=== PATIENT | male | born 1970 | race Caucasian/White ===

== ENCOUNTER 2020-03-02 02:28 | Outpatient (CLI) | payer SELFPAY ==
[2020-03-03 23:24] LABS: COVID-19 RT-PCR Result NEGATIVE (Negative)
== END 2020-03-02 02:48 ==
PROVIDERS: PCP Nurse Practitioner; Visit Provider Nurse Practitioner
DX: Z20.828 Contact with and (suspected) exposure to other viral communicable diseases (principal); Z11.59 Encounter for screening for other viral diseases
CPT/HCPCS: U0003

== ENCOUNTER 2021-01-08 02:37 | Outpatient (CLI) | payer BC, SELFPAY ==
[2021-01-08 07:56] LABS: HCT 47.6 % (40.0-50.0); HGB 16.4 g/dL (13.5-17.5); MCH 29.5 pg (27.0-33.0); MCHC 34.5 % (32.0-36.0); MCV 85.8 fL (80-95); MPV 10.2 fL (8.0-11.0); Platelet Count 201 10^3/uL (130-400); RBC 5.55 10^6/uL (4.36-5.78); RDW 11.9 % (11.8-14.1); RDW-SD 37.3 fL; WBC 6.43 10^3/uL (4.4-10.8)
[2021-01-08 08:38] LABS: ALT 32 U/L (16-63); AST 17 U/L (15-37); Alkaline Phosphatase 53 U/L (46-116); Anion Gap 10.3 mmol/L (3-11); BUN 19 mg/dL (7-18); Bilirubin, Total 0.7 mg/dL (0.2-1.0); CO2 26.7 mmol/L (21.0-32.0); CREATININE 1.3 mg/dL (0.70-1.30); Calculated LDL 128 mg/dL (<100); Chloride 104 mmol/L (98-107); Cholesterol 216 mg/dL (<200); Estimated GFR 58.92 (mL/min/1.73m2); Glucose 99 mg/dL (74-106); HDL Cholesterol 33 mg/dL (40-60); Potassium 4.2 mmol/L (3.5-5.1); Sodium 141 mmol/L (136-145); Triglyceride 275 mg/dL (<150)
[2021-01-08 18:11] LABS: PSA, Screening 1.2 ng/mL (0.0-2.5)
== END 2021-01-08 02:38 | disposition home or self-care (01) ==
LOC: LBO 02:37
PROVIDERS: PCP Nurse Practitioner; Visit Provider Nurse Practitioner
DX: F13.220 Sedative, hypnotic or anxiolytic dependence with intoxication, uncomplicated; F32.9 Major depressive disorder, single episode, unspecified; N52.9 Male erectile dysfunction, unspecified; R39.11 Hesitancy of micturition; Z80.42 Family history of malignant neoplasm of prostate; Z12.5 Encounter for screening for malignant neoplasm of prostate
CPT/HCPCS: 36415; 80053; 80061; 84153; 85027

== ENCOUNTER 2021-11-06 07:16 | Emergency (ER) | payer BC, SELFPAY ==
[2021-11-06 07:25] VITALS: BP 139/95; PULSE 68; RESP 18; TEMP 37.4; O2SAT 98
--- NOTE | 2021-11-06 07:30 | RT.EKG_ITS ---
APPROVED REPORT Exam: Resting ECG Reason for Exam: left shoulder pain Patient Location: E HR:63 bpm ECG Measurements Heart Rate 63 AXIS IN 134 P 32 QRSd 125 QRS -55 QT 406 T 23 QTc 416 Conclusion Sinus rhythm...normal P axis, V-rate 60- 99 ST elev, probable normal early repol pattern...ST elevation, age<55 Physician: no stemi
--- NOTE | 2021-11-06 07:45 | W.ED.GENAD ---
Discharge Plan Disposition Patient Disposition: HOME Condition: Good Discharge Details Clinical Impression: Cervical radiculopathy Primary Care Provider: Sadia Alonso ED Provider: Shayan Proctor Home Meds and New Rx's Prescriptions: New cyclobenzaprine 10 mg tablet 10 mg PO TID Qty: 14 0RF prednisone 50 mg tablet 50 mg PO DAILY Qty: 5 0RF gabapentin [Neurontin] 300 mg capsule 300 mg PO TID Qty: 90 0RF Rx Instructions: On the first day take 1 pill, on the second day take 1 pill twice daily, on the third day and for the remainder of the prescription take 1 pill 3 times a day. No Action bupropion HCl 300 mg tablet extended release 24 hr 300 mg PO QAM Qty: 90 3RF Rx Instructions: Take in AM. venlafaxine 150 mg capsule,extended release 24hr 150 mg PO QAM Qty: 90 3RF venlafaxine 75 mg capsule,extended release 24hr 75 mg PO QAM Qty: 90 3RF sildenafil [Viagra] 100 mg tablet 50 mg PO DAILY PRN (Reason: sexual activity) Qty: 6 0RF bisacodyl [Dulcolax (bisacodyl)] 5 mg tablet,delayed release (DR/EC) 5 mg PO ONCE Qty: 4 0RF Rx Instructions: Take according to provider's instructions for colonoscopy prep. polyethylene glycol 3350 17 gram/dose powder 17 g PO ONCE Qty: 238 0RF Rx Instructions: To be taken as directed by prescriber's office for colonoscopy prep. omeprazole 20 mg capsule,delayed release(DR/EC) 20 mg PO DAILY Qty: 90 3RF ibuprofen 800 mg Tablet 800 mg PO PRN PRN Discharge Instructions Instructions: Cervical Radiculopathy (ED) Additional Instructions: At this time your symptoms appear consistent with mild cervical radiculopathy. Please take Tylenol and Motrin to help with the inflammation. Take the steroid prednisone and the nerve pill gabapentin as directed. You have been prescribed a muscle relaxant called cyclobenzaprine. Please take this as directed. However do not take it when driving or operating any vehicles or heavy machinery, swimming, taking long baths, or operating firearms. Please use a heating pad as often as possible on your back. If you notice any worsening of your symptoms, or any new symptoms such as vomiting, diarrhea, fever, chills, shortness of breath, chest pain, numbness or tingling in your groin or legs, weakness in your legs, loss of control for your bowels or bladder, or fainting , please return immediately to the emergency department for reevaluation. Please follow up with your primary care provider as soon as possible for reassessment and reevaluation. As always, it was a pleasure participating in your medical care today. Stand Alone Forms: Work Release Referrals: Sadia Alonso NP [Primary Care Provider] - Medical Decision Making 51-year-old male with a past medical history of cervical radiculopathy presents today for left-sided neck and shoulder pain. Symptoms have been present for the last 4 to 5 days. He states that he had symptoms identical to this a few years ago, at which time he had an MRI which did show some mild radiculopathy. 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 He denies any trauma though, or any focal episode that exacerbated his symptoms. He denies any chest or back pain or headache. He states that the pain in his arm is described as an achiness, travels from his left shoulder down to his arm with a sensation of numbness and tingling in the hand forearm and arm. Symptoms are made worse when he turns his neck to the side, and presses down on the top of his head. Patient denies any saddle anesthesia, numbness or tingling in the groin, change in sensation when wiping. Patient denies any change in sensation during sexual intercourse, difficulty achieving or maintaining an erection or ejaculation, bowel or bladder incontinence, leakage, or retention. Patient denies any weakness in the lower extremities, atypical falls or imbalance. Patient did take ibuprofen but this did not improve his symptoms at all. Exam demonstrates a well-appearing male, no midline cervical thoracic or lumbar spine tenderness. Patient demonstrates excellent sensation in the left upper extremity, including good rac specialist strength movement flexion extension at the elbow and shoulder. Good two-point discrimination. No evidence of significant neurovascular compromise whatsoever. Patient does have tense scalenes bilaterally, and symptoms in the left arm are subjectively worsened with downward pressure on the head, as well as sidebending. Differential is highest for mild cervical radiculopathy, potentially mild thoracic outlet syndrome as well. Review of the patient's MRI does demonstrate mild disease in the past. With no evidence of clinical significant neurologic compromise at this time I see no indication for emergent imaging currently. We will treat with steroids, muscle relaxant, recommend he, and continued NSAIDs. Patient does have follow-up on Monday morning. I feel that this is appropriate at this current time in setting. Discussed red flags for which to return. Also discussed with the patient the importance of not driving while on the muscle relaxants as this can inhibit his judgment and skills. I have extensively reviewed the treatment plan and discharge instructions with the patient. I have addressed all patient concerns at this time. The patient was made aware of what symptoms to monitor for that would warrant a return to the emergency department. Discussed the plan with the patient, they demonstrate verbal understanding and agreement with our assessment and plan at this time. The documentation in this chart was dictated using [employer] dictation software. Please excuse any dictation errors. HPI General Date/Time Provider Initiated Documentation: 11/06/21 07:20. HPI Narrative: 51-year-old male with a past medical history of cervical radiculopathy presents today for left-sided neck and shoulder pain. Symptoms have been present for the last 4 to 5 days. He states that he had symptoms identical to this a few years ago, at which time he had an MRI which did show some mild radiculopathy. 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 He denies any trauma though, or any focal episode that exacerbated his symptoms. He denies any chest or back pain or headache. He states that the pain in his arm is described as an achiness, travels from his left shoulder down to his arm with a sensation of numbness and tingling in the hand forearm and arm. Symptoms are made worse when he turns his neck to the side, and presses down on the top of his head. Patient denies any saddle anesthesia, numbness or tingling in the groin, change in sensation when wiping. Patient denies any change in sensation during sexual intercourse, difficulty achieving or maintaining an erection or ejaculation, bowel or bladder incontinence, leakage, or retention. Patient denies any weakness in the lower extremities, atypical falls or imbalance. Patient did take ibuprofen but this did not improve his symptoms at all. Related Data Home Medications Medication Instructions Recorded Confirmed bupropion HCl 300 mg 24 hr tablet, 300 mg PO QAM #90 tab-caps 12/29/20 11/06/21 extended release sildenafil 100 mg tablet (Viagra) 50 mg PO DAILY PRN sexual activity 12/29/20 11/06/21 #6 tabs venlafaxine 150 mg 150 mg PO QAM #90 caps 12/29/20 11/06/21 capsule,extended release 24 hr venlafaxine 75 mg capsule,extended 75 mg PO QAM #90 caps 12/29/20 11/06/21 release 24 hr omeprazole 20 mg capsule,delayed 20 mg PO DAILY #90 caps 03/11/21 11/06/21 release bisacodyl 5 mg tablet,delayed 5 mg PO ONCE #4 tabs 10/29/21 11/06/21 release (Dulcolax (bisacodyl)) polyethylene glycol 3350 17 17 g PO ONCE #238 grams 10/29/21 11/06/21 gram/dose oral powder cyclobenzaprine 10 mg tablet 10 mg PO TID #14 tabs 11/06/21 gabapentin 300 mg capsule 300 mg PO TID #90 caps 11/06/21 (Neurontin) ibuprofen 800 mg tablet 800 mg PO PRN PRN 11/06/21 11/06/21 prednisone 50 mg tablet 50 mg PO DAILY #5 tabs 11/06/21 Previous Rx's Medication Instructions Recorded bupropion HCl 300 mg 24 hr tablet, 300 mg PO QAM #90 tab-caps 12/29/20 extended release sildenafil 100 mg tablet (Viagra) 50 mg PO DAILY PRN sexual activity 12/29/20 #6 tabs venlafaxine 150 mg 150 mg PO QAM #90 caps 12/29/20 capsule,extended release 24 hr venlafaxine 75 mg capsule,extended 75 mg PO QAM #90 caps 12/29/20 release 24 hr omeprazole 20 mg capsule,delayed 20 mg PO DAILY #90 caps 03/11/21 release bisacodyl 5 mg tablet,delayed 5 mg PO ONCE #4 tabs 10/29/21 release (Dulcolax (bisacodyl)) polyethylene glycol 3350 17 17 g PO ONCE #238 grams 10/29/21 gram/dose oral powder cyclobenzaprine 10 mg tablet 10 mg PO TID #14 tabs 11/06/21 gabapentin 300 mg capsule 300 mg PO TID #90 caps 11/06/21 (Neurontin) prednisone 50 mg tablet 50 mg PO DAILY #5 tabs 11/06/21 Allergies Allergy/AdvReac Type Severity Reaction Status Date / Time tramadol AdvReac Severe dopey Verified 11/06/21 07:29 General Stated Complaint: Nk/Back Pain ELIA: 4 Review of Systems All systems reviewed & are unremarkable except as noted in HPI and below PFSH All Active Problems Cervical radiculopathy (Acute) Tobacco abuse (Chronic 06/28/17) Medical History Abnormal blood chemistry Abnormal MRI, cervical spine (07/28/14) h/o R arm paresthesias, herniated disc C5-6, s/p epi inj Anxiety disorder, unspecified (05/16/16) Depressive disorder (06/19/07) bupropion rx 06/12/12; anxiety as well; chg to citalopram 10/06; chg to venlafaxin 11/2012 Dermatophytosis (12/20/11) Family history of prostate cancer Hearing loss (03/23/07) Heartburn Hyperlipidemia Male erectile dysfunction, unspecified (03/02/15) Viagra PRN Sciatica (06/17/13) L leg weak Screening for cholesterol level Tinea versicolor Urinary hesitancy Surgical History Arthroplasty (03/27/03) CONSTANTINE, for dislocation shoulder. Family History Father Prostate cancer Mother Mental disorder anxiety Sister Mental disorder Anxiety Social History Smoking/Tobacco Use Status: Former Tobacco Use Smoking risk assessment performed?: Yes Alcohol Intake: current Alcohol Intake frequency: a few times a week Alcohol type: beer Drug use: Never Substance use type: does not use Exam Narrative Exam Narrative: 1.Const: Well-nourished, Well-developed, appearing stated age 2.Eyes: PERRL, no conjunctival injection, and symmetrical lids. 3.ENT: Atraumatic external nose and ears. Moist MM. Neck: Symmetric, trachea midline, No thyromegaly. 4.CVS: +S1/S2, No murmurs or gallops. Peripheral pulses 2+ and equal in all extremities. Brisk capillary refill in all extremities. 5.RESP: Unlabored respiratory effort. Clear to auscultation bilaterally. No wheezes rales or rhonchi 6.GI: Soft, Nontender/Nondistended, No hepatosplenomegaly. No guarding or rebound. 7.MSK: Normocephalic/Atraumatic, Extremities w/o deformity or ttp No cyanosis or clubbing, Normal movement of all extremities No midline tenderness to palpation over the CTLS spine. Normal ROM in flexion, extension, side bend, and rotation. P +5 out of 5 strength in the medial, ulnar, radial nerve distribution bilaterally in the hands as well as intact light touch sensation to these dermatomes on the hands Downward pressure on the head elicits worsening of the tingling subjectively in the left hand and arm. Sidebending to both the left and the right also exacerbate the symptoms. However there is no midline tenderness. Symmetrically palpable radial and ulnar pulses. Capillary refill less than 2 seconds to all digits. Intact sensation to light touch of the radial, median and ulnar nerves demonstrated by testing in the dorsal web space of the thumb, the distal palmar aspect of the index finger, and the lateral surface of the fifth finger. 2 point discrimination intact to 5mm (up to 6mm can be normal in digits 3-5) of discrimination in the affected digits. Intact motor function of the radial, median and ulnar nerves demonstrated by strength of extension of the isolated distal joint of the index finger, hand rac specialist, and spreading of the 2nd through 5th digits. Intact recurrent median nerve as demonstrated by ability to move thumb fully through opposition, abduction and flexion. No snuffbox tenderness. 8.Skin: Warm, Dry. No rashes or lesions. 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 Sensation grossly intact, no focal neurologic deficits. Please see musculoskeletal 10.Psych: (AAO) x3. Appropriate mood and affect Course Vital Signs Vital signs: Vital Signs Temperature 37.4 C 11/06/21 07:25 Pulse 68 11/06/21 07:25 Respiratory Rate 18 11/06/21 07:25 Blood Pressure 139/95 H 11/06/21 07:25 Pulse Oximetry 98 11/06/21 07:25 Temperature 37.4 C 11/06/21 07:25 Temperature Source Temporal Artery Scan 11/06/21 07:25 Pulse 68 11/06/21 07:25 Respiratory Rate 18 11/06/21 07:25 Blood Pressure 139/95 H 11/06/21 07:25 Blood Pressure Position Sitting 11/06/21 07:25 Pulse Oximetry 98 11/06/21 07:25 Oxygen Delivery Method Room Air 11/06/21 07:25 Oxygen Flow Rate 0 11/06/21 07:25 Pain Level 8 11/06/21 07:25
[2021-11-06] MEDS: predniSONE 20 MG TAB 60 MG PO (08:03)
== END 2021-11-06 11:37 | disposition home or self-care (01) ==
PROVIDERS: Emergency Provider Student in an Organized Health Care Education/Training Program; PCP Nurse Practitioner
DX: M25.512 Pain in left shoulder (principal); M54.12 Radiculopathy, cervical region
CPT/HCPCS: 93005; 99283; 93010; J7512

== ENCOUNTER 2022-02-04 06:13 | Day surgery (SDC) | payer BC, SELFPAY ==
[2022-02-04 06:15] VITALS: BP 134/97; PULSE 71; RESP 16; TEMP 36.6; O2SAT 97
--- NOTE | 2022-02-04 06:22 | COLE_ITS ---
Date of service: 02/04/22 Time of Service: 07:20 Colonoscopy Report Date of procedure: 02/04/22 Pre-op diagnosis general: Colon Cancer Screening Post-op diagnosis procedure note: other (polyps) Procedure: Colonoscopy with polypectomy Surgeon: Ros Nixon Anesthesia Type: General:No Airway Estimated blood loss (mL): 3 Pathology: other (transverse polyp, descending polyp and sigmoid polyps) Complications: None Disposition: same day Indications: He is 51 years old with no gastrointestinal symptoms.? He denies melena, hematochezia, family history of colorectal cancers, or any other discomfort surrounding his GI habits. Risks, benefits and complications have been reviewed. Complications include but are not limited to bleeding, pain, perforation, missed small lesion/polyp, sore throat, aspiration and adverse reac tion to the medications. Questions were entertained and answered to their satisfaction and they wished to proceed. No guarantees were given or implied. He is Prep: Miralax/Dulcolax Procedure Start Time: 07:20 Procedure End Time: 07:42 Retraction Time: 14 minutes Findings: 4 small polyps Procedure Description: After informed consent was obtained the patient was taken to the procedure room and placed in a left decubitous position. Monitors were applied and a time out was done. The patients name, date of , procedure, allergies to medications and metal in their body was reviewed. The patient was then sedated. Once sedated and comfortable a rectal exam was done. External exam was normal. Internal exam revealed a normal sphincter tone and no palpable masses. The prostate felt smooth. The scope was then introduced and retro-flexed. No internal hemorrhoids, polyps or masses were identified on retro-flexion. The scope was then advanced to the cecum without difficulty. The ileocecal vlave and appendiceal orifice were identified. The prep was good. The scope was then slowly retracted over 14 minutes back into the rectum. Polyps were removed with cold forceps in the Transverse colon x1, Descending colon x1 and sigmoid colon x2. There was no diverticulosis noted. The scope was removed and the patient was woken up and taken back to Same day surgery in stable condition. The patient tolerated the procedure well and there were no immediate complications.
--- NOTE | 2022-02-04 06:24 | W.PM.DSUDISC ---
Date of service: 02/04/22 Time of Service: 07:20 Discharge Plan Disposition Patient Disposition: HOME Condition: Good Discharge Details Reason For Visit: colonoscopy Attending Provider: Ros Nixon Primary Care Provider: Sadia Alonso Home Meds and New Rx's Prescriptions: Continued bupropion HCl 300 mg tablet extended release 24 hr 300 mg PO QAM Qty: 90 3RF Rx Instructions: Take in AM. venlafaxine 150 mg capsule,extended release 24hr 150 mg PO QAM Qty: 90 3RF venlafaxine 75 mg capsule,extended release 24hr 75 mg PO QAM Qty: 90 3RF sildenafil [Viagra] 100 mg tablet 50 mg PO DAILY PRN (Reason: sexual activity) Qty: 6 0RF omeprazole 20 mg capsule,delayed release(DR/EC) 20 mg PO DAILY Qty: 90 3RF ibuprofen 800 mg Tablet 800 mg PO PRN PRN Discontinued polyethylene glycol 3350 17 gram/dose powder 238 g PO ONCE Qty: 238 0RF Rx Instructions: take per colonoscopy instructions bisacodyl [Dulcolax (bisacodyl)] 5 mg tablet,delayed release (DR/EC) 5 mg PO ONCE Qty: 4 0RF Rx Instructions: take per colonoscopy instructions Discharge Instructions Instructions: Colorectal Polyps (DC) Additional Instructions: Findings: 4 polyps Follow up: 5 years more then likely Please call if you develop: fevers >101.5 Nausea or Vomiting Abdominal pain that is not transient Rectal bleeding that is more then a tbsp A hard abdomen and inability to pass gas DAY SURGERY UNIT POST ENDOSCOPY INSTRUCTIONS Instructions for everyone who is given Anesthesia: For your safety, please do the following for the next 24 Hours: a. Do not drive or operate dangerous equipment b. Do not drink alcohol beverages or use any recreational drugs for the first 24 hours or while taking pain medications. The medications in your body may have a reaction that can be dangerous. c. Do not make any important decisions or sign any important papers 1. Generally there are no restrictions on your activity after a day or so has gone by, but you may feel a bit fatigued for a few days. 2. After you arrive home you may have a light meal and return to a normal diet as you can tolerate it without feeling sick to your stomach. 3. After surgery, you may feel pain or discomfort. This should be only transient, but if it persists please contact your doctor. 4. If there are any questions regarding the findings of your procedure, please feel free to contact your doctor. 6. If you are unable to contact your doctor with a problem, contact the hospital at [phone]. 7. Continue all your regular medications unless directed otherwise. I understand the above instructions and have no questions. Signature of Patient or Responsible Adult Escort Date/Time Name of Responsible Adult Escort Signature of Nurse Date/Time Activity:: Activity as Tolerated Diet:: As Tolerated Discharge Orders Discharge Orders: Discharge Order (Routine); Ordered 02/04/22 Ordered By: Ros Nixon
[2022-02-04] MEDS: Lactated Ringers 1,000 ML 80 ML IV (06:44)
--- NOTE | 2022-02-04 06:46 | W.ANESPRE ---
General Info Date of Service Date Performed: 02/04/22 Height: 5 ft 10 in Weight: 91.6 kg Body Mass Index (BMI): 29.0 Surgical Procedure: Operation Date: 02/04/22 07:35 Proposed Procedure Side Surgeon p Colonoscopy Ros Nixon MD Meds Allergies and Home Medications Allergies Allergy/AdvReac Type Severity Reaction Status Date / Time tramadol AdvReac Severe dopey Verified 02/04/22 06:01 Home Medication Medication Instructions Recorded bupropion HCl 300 mg 24 hr tablet, 300 mg PO QAM #90 tab-caps 12/29/20 extended release sildenafil 100 mg tablet (Viagra) 50 mg PO DAILY PRN sexual activity 12/29/20 #6 tabs venlafaxine 150 mg 150 mg PO QAM #90 caps 12/29/20 capsule,extended release 24 hr venlafaxine 75 mg capsule,extended 75 mg PO QAM #90 caps 12/29/20 release 24 hr omeprazole 20 mg capsule,delayed 20 mg PO DAILY #90 caps 03/11/21 release ibuprofen 800 mg tablet 800 mg PO PRN PRN 11/06/21 bisacodyl 5 mg tablet,delayed 5 mg PO ONCE colonscopy bowel prep 01/26/22 release (Dulcolax (bisacodyl)) #4 tabs polyethylene glycol 3350 17 238 g PO ONCE colonoscopy prep 01/26/22 gram/dose oral powder #238 grams Current Visit Medications: Current Medications Generic Name Dose Route Start Last Admin Trade Name Freq PRN Reason Stop Dose Admin Hyoscyamine Sulfate 0.125 mg 02/04/22 06:24 Hyoscyamine 0.125 Mg Sl/Oral/Chew SL DIRECTED PRN Ringer's Solution 1,000 mls @ 80 mls/hr 02/04/22 06:00 02/04/22 06:44 IV 03/05/22 23:59 80 mls/hr INFUSION BRONSON Administration IV Miscellaneous Supplies 1 each 02/04/22 06:00 Iv Access IV 03/05/22 23:59 DIRECTED BRONSON Ondansetron HCl 4 mg 02/04/22 06:24 Ondansetron 4 Mg/2 Ml Vial IVP Q4H PRN PRN Nausea / Vomiting Sodium Chloride 0 ml 02/04/22 06:00 Normal Saline Flush 10 Ml Syr IV 03/05/22 23:59 PRN PRN Sodium Chloride 0 ml 02/04/22 06:00 Normal Saline 10 Ml Vial IJ 03/05/22 23:59 DIRECTED PRN Sterile Water 0 ml 02/04/22 06:00 Water,Injection,Sterile 10 Ml Vial IJ 03/05/22 23:59 DIRECTED PRN PFSH Active Problems Active Problems: Problem Status Onset Code Tobacco abuse 06/28/17 Z72.0 Medical History Medical History Abnormal blood chemistry Abnormal MRI, cervical spine (07/28/14) h/o R arm paresthesias, herniated disc C5-6, s/p epi inj Anxiety disorder, unspecified (05/16/16) Depressive disorder (06/19/07) bupropion rx 06/12/12; anxiety as well; chg to citalopram 10/06; chg to venlafaxin 11/2012 Dermatophytosis (12/20/11) Family history of prostate cancer Hearing loss (03/23/07) Heartburn Hyperlipidemia Male erectile dysfunction, unspecified (03/02/15) Viagra PRN Sciatica (06/17/13) L leg weak Screening for cholesterol level Tinea versicolor Urinary hesitancy Surgical History Surgical History (Updated 02/04/22 @ 06:26 by Melida Davis) Arthroplasty (03/27/03) ERROR Repair torn labrum Tobacco Smoking/Tobacco Use Status: Former Tobacco Use Alcohol Alcohol Intake: current Alcohol intake frequency: a few times a week Alcohol type: beer Substance Use Substance use: Never Substance use type: does not use Vital Signs and Lab Results Vital Signs Most Recent Vital Signs in EMR: Most Recent Vital Signs Temp Pulse Resp BP Pulse Ox 36.6 C 71 16 134/97 H 97 02/04/22 06:15 02/04/22 06:15 02/04/22 06:15 02/04/22 06:15 02/04/22 06:15 Lab Results Blood Type / Crossmatch: No Data to Display Complete Blood Count: No Data to Display Complete Metabolic Panel: No Data to Display Liver Function Panel: No Data to Display Coagulation Panel: No Data to Display Cardiac Panel: No Data to Display Arterial Blood Gas: No Data to Display Venous Blood Gas: No Data to Display Pancreas Panel: No Data to Display Thyroid Panel: No Data to Display Infectious Disease: No Data to Display Blood Cultures: No Data to Display Toxicology Panel: No Data to Display Anesthesia Assessment and Plan Anesthesia History Personal History: No History of Anesthesia Complications Family History: No Family History of Anesthesia Complications Exercise Tolerance Exercise Tolerance: Metabolic Equivalents>4 Pertinent Negatives Pertinent Negatives: No Symptoms of GERD Cardiac & Pulmonary Exam Cardiac Exam: Normal S1/S2 Heart Sounds Pulmonary Exam: Clear Bilateral Breath Sounds Implantable Cardiac Device Does patient have a Pacemaker or an ICD?: No Airway Exam Known Difficult Airway: No Mallampati Class: 3 Mouth Opening: Normal (> 3cm) Thyromental Distance: Greater than 3 cm Neck Range of Motion: Full ROM Neck Circumference: Normal Teeth Condition: Normal Dentition ASA Classification ASA Score: ASA 2 Emergency Case?: No NPO Status NPO Status: NPO Clears >2 hours, Solids >8 hours Anesthesia Plan Resuscitation Status: Full Code Anesthesia Technique: General Anesthesia Airway Planned: Natural Airway Monitors Used: Standard Monitors
[2022-02-04 06:58] VITALS: BMI 29.0
--- NOTE | 2022-02-04 07:34 | BOWEL_PTH ---
PATIENT: Ant Yi LOC: [facility] U#:[id number] AGE/SX: 51/M ROOM: RE02/04/[address]: Ros Nixon MD : 1970 BED: DIS: 02/04/2022 SPEC #: [id number] RECD: 02/04/22 12:41 STATUS: SILVERIO RE #: [id number] YONG: 02/04/22 07:[address]: Ros Nixon DEPT: Surgical Specimen RECD BY: Jhoana Goins ENTERED: 02/04/22 12:42 SP TYPE: Bowel OTHR DR: Sadia Alonso APRN Tissues: 1 - BIOPSY BOWEL 2 - BIOPSY BOWEL 3 - BIOPSY BOWEL Procedures: GROSS AND MICRO LEVEL 4 Comments: [id number]
[2022-02-04 07:52] VITALS: BP 97/69; PULSE 72; RESP 15; TEMP 36.4; O2SAT 94
[2022-02-04 07:59] VITALS: BP 101/75; PULSE 65; RESP 16; O2SAT 94
--- NOTE | 2022-02-04 08:22 | W.ANESPOSTOP ---
Postoperative Evaluation Date, Time and Location Date Performed: 02/04/22 Time Performed: 08:00 Patient Location: Day Surgery Unit Vital Signs Most Recent Imported Vital Signs: Most Recent Vital Signs Temp Pulse Resp BP Pulse Ox 36.4 C L 65 16 101/75 94 02/04/22 07:52 02/04/22 07:59 02/04/22 07:59 02/04/22 07:59 02/04/22 07:59 Assessment Mental Status: Arousable with meaningful communication Airway and Respiratory Function: Patent airway with normal (patient baseline) respiratory exam Cardiovascular Function: Hemodynamically Stable Hydration Status: Adequately Hydrated Nausea & Vomiting: No Nausea or Vomiting Pain: Pt. Denies Any Pain Peripheral Nerve Block: Patient did not receive a nerve block
[2022-02-04 08:25] VITALS: BP 123/84; PULSE 57; RESP 16; TEMP 36.7; O2SAT 97
== END 2022-02-04 09:10 | disposition home or self-care (01) ==
PROVIDERS: PCP Nurse Practitioner; Visit Provider Surgery
PROC: 0DJD8ZZ Inspection of Lower Intestinal Tract, Via Natural or Artificial Opening Endoscopic (ICD-10-PCS; CPT 45378; principal; 2022-02-04 07:30)
DX: Z12.11 Encounter for screening for malignant neoplasm of colon (principal); K63.5 Polyp of colon
CPT/HCPCS: 45380; 88305

== ENCOUNTER 2024-04-19 02:17 | Outpatient (CLI) | payer OTHER, SELFPAY ==
[2024-04-19 07:58] LABS: Abs Immature Grans 0.02 10^3/uL (0.0-0.06); Absolute Basophil Count 0.04 10^3/uL (0.0-0.2); Absolute Eosinophil Count 0.13 10^3/uL (0.0-0.7); Absolute Monocyte Count 0.47 10^3/uL (0.1-0.8); Absolute Neutrophil Count 2.63 10^3/uL (1.2-6.7); Basophils % 0.8 %; Eosinophils % 2.5 %; HCT 55.7 % (40.0-50.0); HGB 18.9 g/dL (13.5-17.5); Immature Grans % 0.4 %; Lymphocytes % 36.6 %; MCH 29.1 pg (27.0-33.0); MCHC 33.9 % (32.0-36.0); MCV 86 fL (80-95); MPV 9.8 fL (8.0-11.0); Monocytes % 9.1 %; Neutrophils % 50.6 %; Platelet Count 191 10^3/uL (130-400); RBC 6.49 10^6/uL (4.36-5.78); RDW 12.9 % (11.8-14.1); WBC 5.19 10^3/uL (4.4-10.8)
[2024-04-19 08:25] LABS: ALT 32 U/L (16-63); AST 18 U/L (15-37); Albumin 3.8 g/dL (3.4-5.0); Alkaline Phosphatase 61 U/L (46-116); Anion Gap 5.6 mmol/L (3-11); BUN 13 mg/dL (7-18); Bilirubin, Total 1.07 mg/dL (0.2-1.0); CO2 31.4 mmol/L (21.0-32.0); CREATININE 1.1 mg/dL (0.70-1.30); Calcium 9.4 mg/dL (8.5-10.1); Calculated LDL 127 mg/dL (<100); Chloride 104 mmol/L (98-107); Cholesterol 200 mg/dL (<200); Estimated GFR 81.28 (mL/min/1.73m2); Glucose 94 mg/dL (74-106); HDL Cholesterol 47 mg/dL (40-60); Potassium 4.2 mmol/L (3.5-5.1); Sodium 141 mmol/L (136-145); Total Protein 7.3 g/dL (6.4-8.2); Triglyceride 132 mg/dL (<150)
[2024-04-19 08:36] LABS: Diff Comment RBC Morph Reviewed; RBC Morphology Normal
[2024-04-19 19:01] LABS: PSA, Screening 3.7 ng/mL (<=3.5)
== END 2024-04-19 02:18 | disposition home or self-care (01) ==
LOC: LBO 02:17
PROVIDERS: PCP Nurse Practitioner; Referring Provider Nurse Practitioner; Visit Provider Nurse Practitioner
DX: E78.5 Hyperlipidemia, unspecified (principal); Z80.42 Family history of malignant neoplasm of prostate; Z13.220 Encounter for screening for lipoid disorders
CPT/HCPCS: 36415; 80053; 80061; 84153; 85025

== ENCOUNTER 2024-05-10 00:50 | Outpatient (CLI) | payer OTHER, SELFPAY ==
--- OUTSIDE RECORDS SUMMARY | 2024-05-10 00:52 | XMS_ITS | Encounter Summary ---
Author Organization [facility] Address [facility] [place] [address] Care Team Providers Care General Accounting Manager Name Role Phone Aurelio Hutton MD Primary Care Provider [phone] Encounter Details Date Type Department Care Team (Late st Contact Info) Description 07/28/2014 Telephone [place] [address] Boris Davidson MD [facility] [place] [address] Social History Tobacco Use Types Packs/Day Years Used Date Smoking Tobacco: Never Assessed Sex and Gender Information Value Date Recorded Sex Assigned at Not on file Gender Identity Not on file Sexual Orientation Not on file documented as of this encounter Miscellaneous Notes * Telephone Encounter - Boris Davidson - 07/28/2014 6:03 PM EDT Patient w/ RUE radicular pain, numbness, paresthesias. MRI w/ C5-C6 foraminal stenosis and disc. Will need clinic visit with Dr. Vidal. MRI was done at [facility] and will be pushed. No weakness, myelopathy per report. No bowel or bladder symptoms. Concerning signs and symptoms reviewed Referring provider: Dr. Maritza Mcdonald documented in this encounter Plan of Treatment Not on file documented as of this encounter Visit Diagnoses Not on filedocumented in this encounter Care Teams General Accounting Manager Relationship Specialty Start Date End Date Aurelio Hutton MD [address] [place] [address] PCP - General 02/16/10 08/13/18 documented as of this encounter
--- OUTSIDE RECORDS SUMMARY | 2024-05-10 00:52 | XMS_ITS | Encounter Summary ---
Author Organization [facility] [place] [address] Care Team Providers Care Search Marketing Specialist Name Role Phone Aurelio Hutton MD Primary Care Provider [phone] Reason for Referral * Consultation (Routine) - Closed Specialty Diagnoses / Procedures Referred By Contac t Referred To Contact Pain Management Diagnoses Radiculopathy of cervical region Elizabet Salamanca, MIKEY [facility] [place] [address] [facility] [address] [place] [address] Referral ID Status Reason Start Date Expiration Date V isits Requested Visits Authorized [id number] Closed Assume Subset of Care 07/30/2014 07/30/2015 3 3 Reason for Visit * Reason Comments Neck And Arm Pain Encounter Details Date Type Department Care Team (Latest Contact Info) Description 07/30/2014 9:15 AM EDT [place] [address] Doretha Ricks MD [facility] [place] [address] Radiculopathy of cervical region Discharge Disposition: Home Social History Tobacco Use Types Packs/Day Years Used Date Smoking Tobacco: Former Smokeless Tobacco: Former Comments:quit 2002 / quit niko march 1999 Alcohol Use Standard Drinks/Week Comments Yes 0 (1 standard drink = 0.6 oz pur e alcohol) 2 drinks weekly Sex and Gender Information Value Date Recorded Sex Assigned at Not on file Gender Identity Not on file Sexual Orientation Not on file documented as of this encounter Last Filed Vital Signs Vital Sign Reading Time Taken Comments Blood Pressure 122/67 07/30/2014 9:13 AM EDT Pulse 80 07/30/2014 9:13 AM EDT Temperature - - Respiratory Rate - - Oxygen Saturation - - Inhaled Oxygen Concentration - - Weight 88.5 kg (195 lb 3.2 oz) 07/30/2014 9:13 A M EDT Height 180.3 cm (5' 11) 07/30/2014 9:13 AM EDT Body Mass Index 27.22 07/30/2014 9:13 AM EDT documented in this encounter Progress Notes * Doretha Ricks MD - 07/30/2014 10:28 AM EDT The patient is referred by Dr. Hutton for evaluation of surgical radiculopathy. The patient was seen in conjunction with Elizabet Ceron. Please see her separately dictated note for additional details. Briefly, Mr. Yi is a 44-year-old healthy man who has two months of neck and right arm pain with pain and paresthesia in a right C6 distribution. For the last two weeks he feels that his pain is a bit worse and he is having some subjective weakness. 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 Thus far he has been treated with nonsteroidal anti-inflammatory medication, steroid taper and Flexeril. He has not tried membrane-stabilizing medication or epidural steroid injection. He is due to start physical therapy on . At present the patient denies any problems with dexterity or gait. I reviewed his MRI personally. It demonstrates a paracentral right C5-6 disk herniation with associated foraminal stenosis and compression of the exiting C6 root. The disk herniation is continuous with the cord but does not significantly deform it. There is no increased cord signal. Past Medical History: Left shoulder surgery. Medications and allergies are up to date. The patient does not take aspirin. Social History: The patient does not smoke. He is accompanied today by his girlfriend. Physical examination reveals a healthy, fit-appearing man in no outward distress. Affect is slightly flat. He has a normal gait. He has 5/5 power in the deltoid, biceps, triceps, office worker and hand intrinsics. There may be trace weakness in wrist extension on the right. Lower extremity strength is normal. There is trace reflex spread of the upper extremity reflexes but no evidence of Senia sign. Patellar reflexes are 2+. Pinprick, light touch discrimination is persevered throughout the upper and lower extremities although there is subjective decrease in pinprick sensation in the right C6 distribution. Impression: Mr. Yi is a 44-year-old man with a painful right C6 radiculopathy as a result of a C5-6 disk herniation. I discussed with him the option of continued medical management. I recommended him trying a membrane-stabilizing medication and an epidural steroid injection. I think it is reasonable for him to start his physical therapy. I explained that painful radiculopathies often resolve on their own if we can simply palliate the pain in the interim. I did recommend that he take a break from any work-related activities that require heavy lifting. We will plan on seeing him back after he has tried these conservative measures. If the pain is still significant and persistent we could discuss in more detail the nature of C5-6 anterior cervical diskectomy and fusion. Twenty-five minutes of this 35-minute visit were spent in direct [id number] counseling. * Elizabet Ceron APRN - 07/30/2014 9:44 AM EDT HPI: Patient is seen in the Neurosurgery Clinic in consultation for R arm pain, numbness and weakness. Patient is referred by his PCP, Dr. Hutton. Two months ago, patient woke with a stiff neck on the right side. No inciting incident. This progressed to R shoulder pain, which he initially thought was related to his rotator cuff. Pain progressedto lateral arm and hand, and he now feels tingling in his hand and lateral arm. R shoulder pain hasimproved. In the last 2 weeks, he has noticed more weakness in his R hand (he is R dominant) and feels that his R arm fatigues quickly with any kind of repetitive elevation. He denies gait or balancedifficulty or LE symptoms. He did have some difficulty with starting urination, but this is the first time this has occurred. Treatments tried: Upon symptom onset, medrol dose yves--no effect. Flexeril--no improvement. Ketorolac--no improvement. Started prednisone 70mg tapering by 10mg/day yesterday. Feels improved today, but also did not work yesterday and rested much of the day. Given the persistence of his symptoms, an MRI of the cervical spine was obtained and showed possible R disc extrusion at C5-6, for which he isreferred. Patient has a history of lumbar back pain, for which he has never had surgery. He has had radicularpain that radiates into both thighs. 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 Patient does not currently smoke cigarettes. ETOH twice weekly. Lives with girlfriend. Past Medical History Diagnosis Date ??? Back pain Past Surgical History Procedure Laterality Date ??? Rotator cuff repair Left ROS: Patient states s/he has been feeling well. S/he denies headache, nausea/vomiting, mental status change, diplopia or vision loss. S/he is without headaches, excess fatigue, vision or hearing changes, incoordination, weakness or sensory loss, gait/balance difficulties or mental status changes. PE: Filed Vitals: 07/30/14 0913 BP: 122/67 Pulse: 80 Constitutional: Appears well in NAD. Well-nourished, grooming and dress appropriate to situation. Neuro: A&Ox4. Motor: Segment Muscle Action Right Left C5 Biceps Elbow flexion 5 5 C6 Extensor carpi radialis Wrist extension 4+ 5 C7 Triceps Elbow extension 5 5 C8, T1 Hand intrinsics Grasp 4+ 5 L2 Iliopsoas Hip flexion 5 5 L3 Quadriceps Knee extension 5 5 L4 Tibialis anterior Dorsiflexion 5 5 L5 Extensor hallucis Great toe extension S1 Gastrocnemius Plantar flexion 5 5 Sensory: Intact to light touch/pinprick throughout LUE, subjectively reduced to pinprick R lateral upper arm/forearm, hand. Gait: Smooth, balanced, negative Romberg, tandem walk stable, able to toe and heel walk. Reflexes: Biceps Triceps BR Patellar Ankle Jerk Toes R 2+ 2+ 2+ L 2+ 2+ 2+ MRI from 07/28/14 is reviewed by me personally. There is mild protrusion of the right C5-6 disc, which partially impinges on the R C5-6 nerve root. The spinal cord shows no increased signal. No other areas of impingement are seen. A: I reviewed the diagnosis of nerve root impingement in detail, including review of current imaging. We discussed the natural course and related symptoms. We discussed treatment options, including medical management and surgery. I discussed the risks and benefits of each option, and patient stated understanding. His symptoms are consistent with peripheral nerve impingement without symptoms of myelopathy. We discussed this distinction and the implications for treatment. Given that his neurological exam is largely nonfocal and there are no signs of myelopathy, our recommendation is to proceed with continued medical management, to include epidural steroid injection to the nerve root, physicaltherapy, and symptom management with a neuropathic medicaiton such as gabapentin. Should symptoms not respond or myelopathic features develop, surgery can be considered, which wouldinclude a cervical fusion. Given his young age and the nature of this surgery, we have recommended continued medical management. We will have him proceed with this and will re-evaluate him in 3-4 weeks following participation in these measures, to evaluate his symptoms and their response. He knows to call in the interim with any progressive weakness, gait/balance difficulty, or bowel orbladder dysfunction. Dr. Ricks was present and evaluated the patient. See Dr. Ricks' note for additional assessment and plan. documented in this encounter Miscellaneous Notes * Addendum Note - Doretha Ricks MD - 07/30/2014 4:47 PM EDTAddended by: Doretha RICKS on: 07/30/2014 04:47 PM Modules accepted: Level of Service documented in this encounter Plan of Treatment Scheduled Referrals Name Type Priority Associated Diagnoses Orde r Schedule Referral to Pain Clinic Outpatient Referral Routine Radiculopathy of cervical region Ordered: 07/30/2014 documented as of this encounter Visit Diagnoses Diagnosis Radiculopathy of cervical region Brachial neuritis or radiculitis nos documented in this encounter Care Teams Search Marketing Specialist Relationship Specialty Start Date End Date Aurelio Hutton MD [address] [place] [address] PCP - General 02/16/10 08/13/18 documented as of this encounter
--- OUTSIDE RECORDS SUMMARY | 2024-05-10 00:52 | XMS_ITS | Encounter Summary ---
Author Organization [facility] Address [address] [place] [address] Care Team Providers Care Cafe Lead Name Role Phone Aurelio Hutton MD Primary Care Provider [phone] Encounter Details Date Type Department Care Team (Late st Contact Info) Description 10/05/2016 Abstract [facility] Conversion Results [address] [place] [id number] Apd Conversion, Flowsheet Provider, Social History Tobacco Use Types Packs/Day Years Used Date Smoking Tobacco: Former Smokeless Tobacco: Former Comments:quit 2002 / quit joaquim 1999 Alcohol Use Standard Drinks/Week Comments Yes 0 (1 standard drink = 0.6 oz pur e alcohol) 2 drinks weekly Sex and Gender Information Value Date Recorded Sex Assigned at Not on file Gender Identity Not on file Sexual Orientation Not on file documented as of this encounter Plan of Treatment Not on file documented as of this encounter Visit Diagnoses Not on filedocumented in this encounter Care Teams Cafe Lead Relationship Specialty Start Date End Date Aurelio Hutton MD [address] [place] [address] PCP - General 02/16/10 08/13/18 documented as of this encounter
--- OUTSIDE RECORDS SUMMARY | 2024-05-10 00:52 | XMS_ITS | Encounter Summary ---
[place] [address] Care Team Providers Care Back End Developer Name Role Phone Aurelio Hutton MD Primary Care Provider [phone] Encounter Details Date Type Department Care Team (Late st Contact Info) Description 09/03/2014 Telephone [place] [phone] Donna Miller LNA Social History Tobacco Use Types Packs/Day Years [...] encounter Miscellaneous Notes * Telephone Encounter - Donna Miller LNA - 09/03/2014 11:29 AM EDT Ant Yi :1970 Message left: I left a message on answering machine Mr. Yi at 11:29 AM regarding his upcoming cervical epidural steroid injection with Dr. Randy Olivarez DO. Message included the followin. Patient instructed to arrive at 9:50AM on 09/04/2014 with their motor vehicle escort driver. 2. Following instructions left in the message: - Call the Pain Clinic Nurse at for: ~If you are taking antibiotics. ~If you have any signs or symptoms of infection, cold or flu. ~If you have any skin breakdown (rashes, cysts, or abscess.) ~If you are taking anticoagulants / blood thinners (Plavix, Pletal, Lovenox, Coumadin, etc). ~If you had any steroid injections anywhere in your body within the last two weeks? 3. If patient NPO: No food after 4:15AM; clear fluids only up until 8:15AM. Criminal Investigator: The patient was reminded that they need to have a motor vehicle escort driver accompany them to his procedure who will remain onsite. All Other Procedure Patients: The patient was instructed that if they take daily pain or anti-anxiety medications, they can and should continue taking on the day of the procedure. Donna ALEXIS documented in this encounter Plan of Treatment Not on file documented as of this encounter Visit Diagnoses Not on filedocumented in this encounter Care Teams Back End Developer Relationship Specialty Start Date End Date Aurelio Hutton MD [address] [facility] [place] [address] PCP - General 02/16/10 08/13/18 documented as of this encounter
--- OUTSIDE RECORDS SUMMARY | 2024-05-10 00:52 | XMS_ITS | Encounter Summary ---
Author Organization [facility] Address [address] [place] [address] Care Team Providers Care Finishing Tunnel Operator Name Role Phone Celeste Sadia Zamora FIRE CAPTAIN MARINE Primary Care Provider [phone] Encounter Details Date Type Department Care Team (Late st Contact Info) Description 04/19/[address] [facility] Pathology & Laboratory Medicine - [address] [id number] Outr Resulting Lab, Provider Social History Tobacco Use Types Packs/Day Years Used Date Smoking Tobacco: Never Assessed Sex and Gender Information Value Date Recorded Sex Assigned at Not on file Legal Sex Male 18:44 EST Gender Identity Not on file Sexual Orientation Not on file documented as of this encounter Plan of Treatment Not on file documented as of this encounter Procedures Procedure Name Priority Date/Time Associated Diagnosis Comments PSA TOTAL, DIAGNOSTIC Routine 04/19/2024 7:42 EST documented in this encounter Results * (ABNORMAL) PSA, DIAGNOSTIC (04/19/2024 7:42 EST) PSA 3.7(H) <=3.5 ng/mL 04/19/2024 18:57 EST [facility] Blood VENOUS BLOOD / Unknown 04/19/2024 7:42 EST 04/19/2024 16:34 EST Narrative [facility] - 04/19/2024 18:57 EST NOTE: Serum PSA concentration should not be interpreted as absolute evidence for the presence or absence of malignant disease. Assayed on Siemens ADVIA Centaur XPT using chemiluminescent technology.??Values obtained by using different assay methods cannot be used interchangeably. us Provider Outr Resulting Lab CHEMISTRY & BLOOD GA S ORDERABLES Final Result [facility] [address] [place], [place] [address] documented in this encounter Visit Diagnoses Not on filedocumented in this encounter Care Teams Finishing Tunnel Operator Relationship Specialty Start Date End Date Sadia Alonso NP [address] [place] [address] PCP - General Family Medicine - Primary Care 01/25/22 documented as of this encounter
--- OUTSIDE RECORDS SUMMARY | 2024-05-10 00:52 | XMS_ITS | Encounter Summary ---
Author Organization [facility] Address [address] [place] [address] Care Team Providers Care Industrial Energy Engineer Name Role Phone Sadia Alonso RIPSAWYER Primary Care Provider [phone] Encounter Details Date Type Department Care Team (Late st Contact Info) Description 02/04/2022 Lab Requisition [facility] Pathology & Laboratory Medicine - [facility] [address] [place] [address] Del Nixon MD [address] [place] [id number] Encounter for screening for malignant neoplasm of colon Social History Tobacco Use Types Packs/Day Years [...] Procedure Name Priority Date/Time Associated Diagnosis Comments SURGICAL PATHOLOGY Today 02/04/2022 7:34 EST Encounter for screening for malignant neoplasm of colon documented in this encounter Results * SURGICAL PATHOLOGY (02/04/2022 7:34 EST) Note to Patient The following pathology results have been interpreted by your pathologist and may be available to you before your health provider has had the opportunity to review them. Please allow time for your provider to receive these results and explore management options, if applicable. 02/08/2022 14:50 EST [facility] Final Diagnosis A. COLON, TRANSVERSE, POLYP, BIOPSY: - Sessile serrated adenoma. B. COLON, DESCENDING, POLYP, BIOPSY: - Colonic mucosa with hyperplastic surface change. C. COLON, SIGMOID, POLYPS, BIOPSY: - Hyperplastic polyps. 02/08/2022 14:50 [facility] Attestation By the signature below, the attending physician certifies that they have 1) personally conducted a gross and/or microscopic examination of the described specimen(s), and/or personally interpreted the results of laboratory testing of the described specimen(s), and 2) personally rendered or confirmed the above diagnosis. 02/08/2022 14:50 [facility] at 1450 Clinical History Colon cancer screening; clinical diagnosis code: Z12.11 02/08/2022 14:50 [facility] Gross Description A. Received in formalin labelled with proper patient identification (initials G, J) and transverse colon polyp are 3 duarte tissues (0.4 x 0.1 x 0.1 cm to 0.1 x 0.1 x 0.1 cm). Entirely submitted in A1. B. Received in formalin labelled with proper patient identification (initials G, J) and descending colon polyp is a single duarte tissue fragment (0.2 x 0.1 x 0.1 cm). Submitted intact in B1. C. Received in formalin labelled with proper patient identification (initials G, J) and sigmoid polyp x2 are two duarte tissues (0.3 x 0.1 x 0.1 cm and 0.2 x 0.1 x 0.1 cm). Entirely submitted in C1. SULEMAN RIVERA 02/07/2022 4:53 02/08/2022 14:50 [facility] Performing Lab [facility] 02/08/2022 14:50 [facility] Scanned Images 02/08/2022 14:50 [facility] Tissue ENTIRE SIGMOID COLON / Unknown 02/04/2022 7:34 EST 02/04/2022 17:57 EST Tissue specimen (specimen) DESCENDING COLON STRUCTURE / Unknown 02/04/2022 7:34 EST 02/04/2022 17:57 EST Tissue specimen (specimen) SIGMOID COLON STRUCTURE / Unknown 02/04/2022 7:34 EST 02/04/2022 17:57 EST us Del Nixon MD PATHOLOGY ORDERABLES Fin al Result [facility] [address] [place] [address] documented in this encounter Visit Diagnoses Diagnosis Encounter for screening for malignant neoplasm of colon Special screening for malignant neoplasms, colon documented in this encounter Care Teams Industrial Energy Engineer Relationship Specialty Start Date End Date Sadia Alonso NP [address] [place] [id number] PCP - General Family Medicine - Primary Care 01/25/22 documented as of this encounter
--- OUTSIDE RECORDS SUMMARY | 2024-05-10 00:52 | XMS_ITS | Encounter Summary ---
Author Organization [facility] [place] [address] Care Team Providers Care Accounting/Finance Tutor Name Role Phone Sadia Alonso APRN Primary Care Provider [phone] Encounter Details Date Type Department Care Team (Latest Contact Info) Description 08/01/2022 Travel Social History Tobacco Use Types Packs/Day Years [...] on filedocumented in this encounter Care Teams Accounting/Finance Tutor Relationship Specialty Start Date End Date Sadia Alonso APRN [address] [place] [address] PCP - General Internal Medicine 12/12/18 documented as of this encounter
--- OUTSIDE RECORDS SUMMARY | 2024-05-10 00:52 | XMS_ITS | Clinical Summary ---
Author Organization [facility] Address [facility] [place] [address] Care Team Providers Care Communications Tech Name Role Phone Sadia Alonso APRN Primary Care Provider + [phone] Allergies No known active allergies Medications Medication Sig Dispensed Refills Start Date End Date Status venlafaxine (EFFEXOR-XR) 150 mg Capsule, Sust. Release 24 hr Take 150 mg by mouth daily. Active Active Problems No known active problems Encounters Date Type Department Care Team Description 04/09/2024 Travel from Last 3 Months Social History Tobacco Use Types Packs/Day Years Used Date Smoking Tobacco: Former Smokeless Tobacco: Former Comments:quit 2002 / quit joaquim 1999 Alcohol Use Standard Drinks/Week Comments Yes 0 (1 standard drink = 0.6 oz pur e alcohol) 2 drinks weekly Sex and Gender Information Value Date Recorded Sex Assigned at Not on file Gender Identity Not on file Sexual Orientation Not on file Last Filed Vital Signs Vital Sign Reading Time Taken Comments Blood Pressure 123/84 09/04/2014 10:28 AM EDT Pulse 57 09/04/2014 10:28 AM EDT Temperature - - Respiratory Rate 18 09/04/2014 10:28 AM EDT Oxygen Saturation 98% 09/04/2014 10:28 AM EDT Inhaled Oxygen Concentration - - Weight 86.2 kg (190 lb) 09/04/2014 10:10 AM EDT Height 180.3 cm (5' 11) 09/04/2014 10:10 AM EDT Body Mass Index 26.5 09/04/2014 10:10 AM EDT Plan of Treatment Health Maintenance Due Date Last Done Comments CT Colonography 1972 Colonoscopy 1972 Colorectal Cancer Screening 1972 FIT DNA 1972 FIT 1972 Sigmoidoscopy (10 year) with FIT yearly 1972 Sigmoidoscopy 1972 HIV screen 1990 Hepatitis C Screening 1990 Lipid Screening 1990 Hepatitis B vaccine (0-59 yrs) (1) 06/09/1991 Tetanus/Diphtheria/Pertussis Vaccines (1 - Tdap) 06/08 Pneumoccocal Vaccine: 50+ (1 of 1 - PCV) 2022 Zoster vaccine (1 of 2) 2022 Covid-19 Vaccine (1 - 2023- season) 2023 Influenza (Flu) vaccine (1 o f 1 - Influenza standard series) 11/26/2023 Care Teams Communications Tech Relationship Specialty Start Date End Date Sadia Alonso APRN [address] [place] [address] PCP - General Internal Medicine 12/12/18
--- OUTSIDE RECORDS SUMMARY | 2024-05-10 00:52 | XMS_ITS | Encounter Summary ---
Author Organization [facility] [place] [address] Care Team Providers Care Psychiatric Orderly Name Role Phone Aurelio Hutton MD Primary Care Provider [phone] Reason for Visit * Reason Comments Neck Pain Encounter Details Date Type Department Care Team (Latest Contact Info) Description 09/04/2014 9:50 AM EDT Procedure visit [place] [id number] Bianca Banks [facility] [place] [address] Cervical spondylosis without myelopathy; Radiculopathy of cervical region Discharge Disposition: Home [...] Mass Index 26.5 09/04/2014 10:10 AM EDT documented in this encounter Patient Instructions * Patient Instructions* Gini Valente LPN - 09/04/2014 10:19 AM EDT Pain Management Center Discharge Instructions: You were seen by Dr. Bianca Banks DO who performed cervical epidural steroid injection. It is normal that the injection site will be sore for up to 48 hours. You may also experience mild stiffness in the joint near the injection site. [x] You may resume your normal activities: Monday. You may shower today. DO NOT tub bathe, use whirlpools, hot tubs or pool therapy for 2 days. RemoveBand-Aid(s) later today/tomorrow. Do not drive until tomorrow. Use caution walking/climbing stairs as you may be unsteady on your feet. You may use your usual medications, including pain medications, as directed, unless otherwise instructed. You may use an ice pack as needed for the first 24 hours, on for 20 minutes then off for 20 minutes. Do not apply heat today. Attempt to empty your bladder 4-6 hours after your procedure. [x] If you have diabetes, monitor your blood sugars frequently. If your blood sugar increases and is of concern, contact your Primary Care Provider. You received the following medications: Lidocaine, Omnipaque (contrast dye) and Dexamethasone Sodium Phosphate 10 mg. During regular business hours, please phone the Pain Management Center at for appointments or with any questions or if the following or other troubling symptoms develop: 1) Prolonged dizziness or weakness (more than 1 day). 2) Localized swelling, redness or drainage at the injection site(s). 3) Temperature of 101 degrees that lasts for more than 4 hours. After 5 PM or on weekends, call and ask for Pain Clinic provider on-call. If you are unable to reach the Pain Management Center and have a complication, please call your Primary Care Provider or proceed to your local emergency department. MAYDA Rubalacva documented in this encounter Progress Notes * Yeimi Perry RN - 09/04/2014 10:12 AM EDT Pre-Procedure Screening Questions: 1. Status: No 2. 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 Patient taking antibiotics at present? No 4. NPO per Pain Management Center protocol? Yes 5. Patient diabetic: No 6. Patient routinely taking anticoagulants ? No Anticoagulant: Date Stopped: Current INR: Patient Vital Signs documented in Doc Flowsheets associated with this encounter. Patient Discharge Instructions were reviewed with patient and copy provided to patient. documented in this encounter Procedure Notes * Leanna Bowen - 09/04/2014 10:35 AM EDTAssociated Order(s): EPIDURAL STEROID INJECTION Procedure(s): EPIDURAL STEROID INJECTION Pre-Procedure Diagnose(s): Cervical spondylosis without myelopathy Procedure Note Cervical Interlaminar Epidural Steroid Injection Date of Service: 09/04/2014 Patient: Ant Yi Provider: Leanna Bowen MD Ant Yi has been referred to the Pain Management Center for cervical epidural steroid injection. Mr. Yi was interviewed and the medical record were reviewed. There were no medical, pharmacologic, radiographic or other structural contraindications to attempting fluoroscopically guided cervicalinterlaminar epidural steroid injection. Risks, potential side effects, indications, and potential benefits of the procedure were reviewed with Mr. Yi. Questions and concernswere addressed. After it was clear that the patient was fully informed about the procedure, the printed consent form was signed by the patient and myself. A standard time-out procedure was performed. The patient was placed in the prone position on the fluoroscopy table and automated blood pressure cuff as well as pulse oximeter was applied. The skin entry point for entering the epidural space by a midline C7-T1 interlaminar approach was identified under fluoroscopy and marked. The skin entry point was thoroughly cleaned with Chlorhexadine preparation and the skin was draped. Next a mixture of9cc of 1% lidocaine mixed with 1cc of Sodium Bicarbonate was infiltrated into the area of the planned skin entry point and underlying subcutaneous tissues. Next an 18 gauge Tuohy needle was placed under fluoroscopic guidance and with loss of resistance technique into the epidural space utilizing multiple AP and 55 degree contralateral fluoroscopic views. Upon correct needle placement and loss of resistance, there were no paresthesiae or return of blood or CSF through the needle. Next 2cc of preservative-free Omnipaque 240 was injected with clear epidural spread in the A/P and oblique views. Next, a solution of 10mg of preservative-free Dexamethasone mixed with 1ml of preservative-free normal saline was injected through with no unusual discomfort expressed by Mr. Yi. Mr. Yi's vital signs were stable throughout the procedure and were as recorded in the docflowsheet by the nursing staff. If given, dosages of intravenous drugs for anxiolysis and analgesia were documented in MAR. Follow up plans and appointments were discussed with the Mr. Yi. Post procedure instruction was given as documented in nursing documentation and having met discharge criteria, he was discharged from the Pain Management Center. COMMENTS: Pt felt lightheaded and clammy after procedure. His blood pressure and pulse went down. We monitored his vital signs afterwards in the procedure room for 10 minutes. He stabilized and the symptoms resolved. He was discharged without new complaints. BIANCA BANKS DO, MPH ABPMR-subspecialty board certification in Pain Medicine Attending Physician-Pain Management CC: Aurelio Hutton MD [address] [place] [id number] AURELIO HUTTON MD [address] [place] [id number] documented in this encounter Plan of Treatment Not on file documented as of this encounter Procedures Procedure Name Priority Date/Time Associated Diagnosis Comments EPIDURAL STEROID INJECTION Routine 09/04/2014 4:03 PM EDT Cervical spondylosis without myelopathy FILM LIBRARY STORAGE ONLY PAIN CLINIC C ARM Routine 09/04/2014 10:50 AM EDT documented in this encounter Results * EPIDURAL STEROID INJECTION (09/04/2014 4:03 PM EDT) Narrative Bianca Banks DO - 09/04/2014 4:03 PM EDT Bianca Banks DO ? 09/04/2014 ??4:03 PM Procedure Note Cervical Interlaminar Epidural Steroid Injection Date of Service: ??09/04/2014 Patient: ??Ant Yi ?? Provider: ??Leanna Bowen MD ?? Ant Yi has been referred to the Pain Management Center for cervical epidural steroid injection. ?? Mr. Yi was interviewed and the medical record were reviewed. ?? There were no medical, pharmacologic, radiographic or other structural contraindications to attempting fluoroscopically guided cervical interlaminar epidural steroid injection. ??Risks, potential side effects, indications, and potential benefits of the procedure were reviewed with Mr. Yi. ??Questions and concernswere addressed. ??After it was clear that the patient was fully informed about the procedure, the printed consent form was signed by the patient and myself. ??A standard time-out procedure was performed. The patient was placed in the prone position on the fluoroscopy table and automated blood pressure cuff as well as pulse oximeter was applied. ??The skin entry point for entering the epidural space by a midline C7-T1 interlaminar approach was identified under fluoroscopy and marked. ??The skin entry point was thoroughly cleaned with Chlorhexadine preparation and the skin was draped. ??Next a mixture of 9cc of 1% lidocaine mixed with 1cc of Sodium Bicarbonate was infiltrated into the area of the planned skin entry point and underlying subcutaneous tissues. ?? Next an 18 gauge Tuohy needle was placed under fluoroscopic guidance and with loss of resistance technique into the epidural space utilizing multiple AP and 55 degree contralateral fluoroscopic views. ??Upon correct needle placement and loss of resistance, there were no paresthesiae or return of blood or CSF through the needle. Next 2cc of preservative-free Omnipaque 240 was injected with clear epidural spread in the A/P and oblique views. Next, a solution of 10mg of preservative-free Dexamethasone mixed with 1ml of preservative-free normal saline was injected through with no unusual discomfort expressed by Mr. Yi. Mr. Yi's vital signs were stable throughout the procedure and were as recorded in the docflowsheet by the nursing staff. ??If given, dosages of intravenous drugs for anxiolysis and analgesia were documented in MAR. Follow up plans and appointments were discussed with the Mr. Yi. ??Post procedure instruction was given as documented in nursing documentation and having met discharge criteria, he was discharged from the Pain Management Center. COMMENTS: Pt felt lightheaded and clammy after procedure. ??His blood pressure and pulse went down. ??We monitored his vital signs afterwards in the procedure room for 10 minutes. ??He stabilized and the symptoms resolved. ??He was discharged without new complaints. BIANCA BANKS DO, MPH ABPMR-subspecialty board certification in Pain Medicine Attending Physician-Pain Management CC: Aurelio Hutton MD [address] [place] [address] AURELIO HUTTON MD [facility] [place] [address] Bianca Saleem DO NEUROLOGY ORDERABLES * Film Library-storage only pain clinic C-arm (09/04/2014 10:50 AM EDT) Anatomical Region Laterality Modality Other 09/04/2014 10:5 0 AM EDT Narrative 09/04/2014 10:50 AM EDT This is a Non-reportable exam Procedure Note SAVANAH, UNSIGNED REPORT - 09/04/2014 This is a Non-reportable exam Bianca Saleem DO IMG FILM LIBRARY ORD ERABLES documented in this encounter Visit Diagnoses Diagnosis Cervical spondylosis without myelopathy Radiculopathy of cervical region Brachial neuritis or radiculitis nos documented in this encounter Administered Medications Inactive Administered Medications - up to 3 most recent administrations Medication Order MAR Action Action Date Dose Rate Site dexamethasone sodium (PF) injection 10 mg 10 mg, Epidural, ONCE, 1 dose, On [place] 09/04/14 at 1100, Routine Given 09/04/2014 11:00 AM EDT 10 mg iohexol (OMNIPAQUE) 240 mg/mL solution 1 mL 1 mL, Epidural, ONCE, 1 dose, On [place] 09/04/14 at 1100, Wasted 49 ml, Routine Given 09/04/2014 11:00 AM EDT 1 mL documented in this encounter Care Teams Psychiatric Orderly Relationship Specialty Start Date End Date Aurelio Hutton MD [address] [place] [address] PCP - General 02/16/10 08/13/18 documented as of this encounter
--- OUTSIDE RECORDS SUMMARY | 2024-05-10 00:52 | XMS_ITS | Encounter Summary ---
Author Organization [facility] [place] [address] Care Team Providers Care Wireless Sales Consultant Name Role Phone Sadia Alonso APRN Primary Care Provider [phone] Encounter Details Date Type Department Care Team (Latest Contact Info) Description 08/14/2023 Travel Social History Tobacco Use Types Packs/Day [...] on filedocumented in this encounter Care Teams Wireless Sales Consultant Relationship Specialty Start Date End Date Sadia Alonso APRN [address] [place] [address] PCP - General Internal Medicine 12/12/18 documented as of this encounter
--- OUTSIDE RECORDS SUMMARY | 2024-05-10 00:52 | XMS_ITS | Encounter Summary ---
Author Organization [facility] [place] [address] Care Team Providers Care Manager Local Name Role Phone Sadia Alonso APRN Primary Care Provider + [phone] Reason for Referral * Consultation (Routine) - Closed Specialty Diagnoses / Procedures Referred By Cesar chacon Referred To Contact Dermatology Diagnoses Pityriasis versicolor Sadia Alonso APRN [address] [place] [address] [facility] Dermatology [address] [place] [address] Referral ID Status Reason Start Date Expiration Date V isits Requested Visits Authorized [id number] Closed Consult, Test & Treat PCP Updated and/or Approved 11/01/2021 11/01/2022 6 6 Encounter Details Date Type Department Care Team (Latest Contact Info) Description 11/01/2021 Transcribe Orders eDH Incoming Referrals [phone] Sadia Alonso APRN [address] [place] [address] Pityriasis versicolor Social History Tobacco Use Types Packs/Day Years Used Date Smoking Tobacco: Former Smokeless Tobacco: Former Comments:quit 2002 / quit march 1999 Alcohol Use Standard Drinks/Week Comments Yes 0 (1 standard drink = 0.6 oz pur e alcohol) 2 drinks weekly Sex and Gender Information Value Date Recorded Sex Assigned at Not on file Gender Identity Not on file Sexual Orientation Not on file documented as of this encounter Plan of Treatment Scheduled Referrals Name Type Priority Associated Diagnoses Order Schedule Referral to Dermatology Outpatient Referral Routine Pityriasis versicolor Ordered: 11/01/2021 documented as of this encounter Visit Diagnoses Diagnosis Pityriasis versicolor documented in this encounter Care Teams Manager Local Relationship Specialty Start Date End Date Sadia Alonso APRN [address] [place] [address] PCP - General Internal Medicine 12/12/18 documented as of this encounter
--- OUTSIDE RECORDS SUMMARY | 2024-05-10 00:52 | XMS_ITS | Encounter Summary ---
[place] [address] Care Team Providers Care Skates Operator Name Role Phone Aurelio Hutton MD Primary Care Provider Encounter Details Date Type Department Care Team (Late st Contact Info) Description 07/28/2014 [place] [id number] Aurelio Hutton MD [address] [place] [id number] Social History Tobacco Use Types Packs/Day Years Used Date Smoking Tobacco: Never Assessed Sex and Gender Information Value Date Recorded Sex Assigned at Not on file Gender Identity Not on file Sexual Orientation Not on file documented as of this encounter Plan of Treatment Not on file documented as of this encounter Procedures Procedure Name Priority Date/Time Associated Diagnosis Comments FILM LIBRARY STORAGE ONLY MR SPINE Routine 07/28/2014 6:23 PM EDT documented in this encounter Results * Film Library- Storage only MR Spine (07/28/2014 6:23 PM EDT) Anatomical Region Laterality Modality Other 07/28/2014 6:23 PM EDT Narrative 07/28/2014 6:23 PM EDT This is a Non-reportable exam Procedure Note SAVANAH, UNSIGNED REPORT - 07/28/2014 This is a Non-reportable exam Aurelio Hutton MD IMG FILM LIBRARY ORDERABLES documented in this encounter Visit Diagnoses Not on filedocumented in this encounter Care Teams Skates Operator Relationship Specialty Start Date End Date Aurelio Hutton MD [address] [place] [address] PCP - General 02/16/10 08/13/18 documented as of this encounter
--- OUTSIDE RECORDS SUMMARY | 2024-05-10 00:52 | XMS_ITS | Referral Summary ---
Author Organization [facility] Address [address] [place] [address] Care Team Providers Care Compressor Mechanic Bus Name Role Phone Celeste Sadia Zamora BARTENDER MANAGER Primary Care Provider [phone] Encounters Date Type Department Care Team Description 04/19/2024 Lab Requisition [facility] Pathology & Laboratory Medicine - [address] [address] Outr Resulting Lab, Provider from Last 3 Months Social History Tobacco Use Types Packs/Day Years Used Date Smoking Tobacco: Never Assessed Sex and Gender Information Value Date Recorded Sex Assigned at Not on file Legal Sex Male 18:44 EST Gender Identity Not on file Sexual Orientation Not on file Plan of Treatment Not on file Procedures Procedure Name Priority Date/Time Associated Diagnosis Comments PSA TOTAL, DIAGNOSTIC Routine 04/19/2024 7:42 EST from Last 3 Months Results * (ABNORMAL) PSA, DIAGNOSTIC (04/19/2024 7:42 EST) PSA 3.7(H) <=3.5 ng/mL 04/19/2024 18:57 EST [facility] Blood VENOUS BLOOD / Unknown 04/19/2024 7:42 EST 04/19/2024 16:34 EST Narrative [facility] - 04/19/2024 18:57 EST NOTE: Serum PSA concentration should not be interpreted as absolute evidence for the presence or absence of malignant disease. Assayed on Siemens ADVIA Workbooksaur XPT using chemiluminescent technology.??Values obtained by using different assay methods cannot be used interchangeably. us Provider Outr Resulting Lab CHEMISTRY & BLOOD GA S ORDERABLES Final Result [facility] [address] [place] [address] from Last 3 Months Insurance * Guarantor: Ant Yi Account Type Relation to Patient Date of Phone Billing Address Personal/Family Self 1970 [phone] [employer] (Work) [address] [place] [address] ANTHEM * Guarantor: Ant Yi Account Type Relation to Patient Date of Phone Billing Address Personal/Family Self 1970 [phone] [employer] (Work) [address] [place] [address] * Guarantor: Ant Yi Account Type Relation to Patient Date of Phone Billing Address Personal/Family Self 1970 [phone] [employer] (Work) [address] [place] [address] * Guarantor: Ant Yi Account Type Relation to Patient Date of Phone Billing Address Personal/Family Self 1970 [phone] [employer] (Work) [address] [place] [address] * Guarantor: Ant Yi Account Type Relation to Patient Date of Phone Billing Address Personal/Family Self 1970 [phone] [employer] (Work) [address] [place] [address] * Guarantor: Ant Yi Account Type Relation to Patient Date of Phone Billing Address Personal/Family Self 1970 [phone] [employer] (Work) [address] [place] [address] * Guarantor: Ant Yi Account Type Relation to Patient Date of Phone Billing Address Personal/Family Self 1970 [phone] [employer] (Work) [address] [place] [address] * Guarantor: Ant Yi Account Type Relation to Patient Date of Phone Billing Address Personal/Family Self 1970 [phone] [employer] (Work) [address] [place] [address] Care Teams Compressor Mechanic Bus Relationship Specialty Start Date End Date Sadia Alonso NP [address] [place] [address] PCP - General Family Medicine - Primary Care 01/25/22
--- OUTSIDE RECORDS SUMMARY | 2024-05-10 00:52 | XMS_ITS | Encounter Summary ---
Author Organization [facility] [place] [address] Care Team Providers Care Electrical Integrator Name Role Phone Sadia Alonso APRN Primary Care Provider [phone] Encounter Details Date Type Department Care Team (Latest Contact Info) Description 04/09/2024 Travel Social History Tobacco Use Types Packs/Day [...] on filedocumented in this encounter Care Teams Electrical Integrator Relationship Specialty Start Date End Date Sadia Alonso APRN [address] [place] [address] PCP - General Internal Medicine 12/12/18 documented as of this encounter
--- OUTSIDE RECORDS SUMMARY | 2024-05-10 00:52 | XMS_ITS | Encounter Summary ---
[place] [address] Care Team Providers Care Dictaphone Transcriber Name Role Phone Sadia Alonso APRN Primary Care Provider [phone] Reason for Referral * Diagnostic Test (Routine) - Closed Specialty Diagnoses / Procedures Referred By Contac t Referred To Contact Radiology Diagnoses Radiculopathy, cervical region Anesthesia of skin Paresthesia of skin Procedures MRI Cervical Spine wo Contrast (Generic) Sadia Alonso APRN [address] [place] [address] [place] [address] Referral ID Status Reason Start Date Expiration Date V isits Requested Visits Authorized [id number] Closed Specialty Service Requested 11/11/2021 05/14/2023 1 1 Reason for Visit * Diagnostic Test (Routine) - Closed Specialty Diagnoses / Procedures Referred By Contac t Referred To Contact Radiology Diagnoses Radiculopathy, cervical region Anesthesia of skin Paresthesia of skin Procedures MRI Cervical Spine wo Contrast (Generic) Sadia Alonso APRN [address] [place] [address] [place] [address] Referral ID Status Reason Start Date Expiration Date V isits Requested Visits Authorized [id number] Closed Specialty Service Requested 11/11/2021 05/14/2023 1 1 Encounter Details Date Type Department Care Team (Latest Contact Info) Description 11/12/2021 6:45 AM EDT - 11/12/2021 11:59 PM EDT Hospital Encounter MRI at [facility] [place] [address] Sadia Alonso, RADIO COMMUNICATIONS MECHANICIAN [address] [place] [address] Radiculopathy, cervical region; Anesthesia of skin; Paresthesia of skin Discharge Disposition: Home Social History Tobacco Use [...] on file documented as of this encounter Medications at Time of Discharge Medication Sig Dispensed Refills Start Date End Date venlafaxine (EFFEXOR-XR) 150 mg Capsule, Sust. Release 24 hr Take 150 mg by mouth daily. documented as of this encounter Plan of Treatment Not on file documented as of this encounter Procedures Procedure Name Priority Date/Time Associated Diagnosis Comments MRI CERVICAL SPINE WO CONTRAST Routine 11/12/2021 7:50 AM EDT Radiculopathy, cervical region Anesthesia of skin Paresthesia of skin documented in this encounter Results * MRI Cervical Spine wo Contrast (Generic) (11/12/2021 7:50 AM EDT) Anatomical Region Laterality Modality C-spine Magnetic Resonan ce Impressions 11/12/2021 12:34 PM EDT Changes of cervical spondylosis as above. Left foraminal narrowing is most pronounced at C6-C7 due to combination of uncovertebral and facet arthropathy with small disc herniation. Thank you for letting us participate in the care of this patient. ??If you are a health care provider and have any questions regarding this report, please contact the number below. ??For patients who have questions please contact the health care management assistant that requested your imaging first. ? Electronically signed by: Rafael Hendrix MD, [facility] ([phone]), at 11/12/2021 12:34 PM Narrative 11/12/2021 12:34 PM EDT EXAMINATION: MRI CERVICAL SPINE WO CONTRAST (GENERIC) CLINICAL HISTORY: cervical radiculopathy, numbess and tingling of left hand, pain neck, down arm cervical radiculopathy, numbess and tingling of left hand, pain neck, down arm TECHNIQUE: MRI of the cervical spine performed without intravenous contrast administration. COMPARISON: None FINDINGS: There is mild reversal of the normal cervical lordosis which may be positional. No focal, aggressive appearing marrow lesion. Cervical cord signal is normal. Findings at specific levels: C2-C3: No canal or foraminal stenosis. C3-C4: Uncovertebral and facet arthropathy produce moderate bilateral foraminal narrowing slightly worse on the right. There is mild overall canal narrowing. C4-C5: There is a right paracentral disc extrusion. Mild indenting the ventral thecal sac, contacting and slightly altering the ventral contour the cord without cord signal abnormality. Mild overall canal narrowing. There is no foraminal stenosis. C5-C6: Posterior osteophyte mildly indents the thecal sac. Uncovertebral and facet arthropathy produces moderate left and severe right foraminal narrowing. C6-C7: Uncovertebral and facet arthropathy combine to produce fairly severe right foraminal narrowing. There is mild overall canal narrowing. Mild left foraminal narrowing. C6-C7: Disc bulge mildly indents ventral thecal sac. Uncovertebral and facet arthropathy contribute to moderate right foraminal narrowing. There is moderate to severe left foraminal narrowing at this level due to correlation with uncovertebral arthropathy and small disc protrusion. C7-T1: No canal or foraminal stenosis. Procedure Note Rafael Hendrix MD - 11/12/2021 EXAMINATION: MRI CERVICAL SPINE WO CONTRAST (GENERIC) CLINICAL HISTORY: cervical radiculopathy, numbess and tingling of lefthand, pain neck, down arm cervical radiculopathy, numbess and tingling of left hand, pain neck, downarm TECHNIQUE: MRI of the cervical spine performed without intravenous contrastadministration. COMPARISON: None FINDINGS: There is mild reversal of the normal cervical lordosis which may bepositional. No focal, aggressive appearing marrow lesion. Cervical cord signal isnormal. Findings at specific levels: C2-C3: No canal or foraminal stenosis. C3-C4: Uncovertebral and facet arthropathy produce moderate bilateralforaminal narrowing slightly worse on the right. There is mild overall canalnarrowing. C4-C5: There is a right paracentral disc extrusion. Mild indenting theventral thecal sac, contacting and slightly altering the ventral contour thecord without cord signal abnormality. Mild overall canal narrowing. There isno foraminal stenosis. C5-C6: Posterior osteophyte mildly indents the thecal sac. Uncovertebraland facet arthropathy produces moderate left and severe right foraminalnarrowing. C6-C7: Uncovertebral and facet arthropathy combine to produce fairlysevere right foraminal narrowing. There is mild overall canal narrowing. Mildleft foraminal narrowing. C6-C7: Disc bulge mildly indents ventral thecal sac. Uncovertebral andfacet arthropathy contribute to moderate right foraminal narrowing. There ismoderate to severe left foraminal narrowing at this level due to correlation with uncovertebral arthropathy and small disc protrusion. C7-T1: No canal or foraminal stenosis. IMPRESSION Changes of cervical spondylosis as above. Left foraminal narrowing ismost pronounced at C6-C7 due to combination of uncovertebral and facetarthropathy with small disc herniation. Thank you for letting us participate in the care of this patient. If youare a health care provider and have any questions regarding this report,please contact the number below. For patients who have questions please contactthe health care management assistant that requested your imaging first. Electronically signed by: Rafael Hendrix MD, [facility]([phone]), at 11/12/2021 12:34 PM Sadia Alonso APRN IMG MRI ORDERABLES documented in this encounter Visit Diagnoses Diagnosis Radiculopathy, cervical region Brachial neuritis or radiculitis nos Anesthesia of skin Disturbance of skin sensation Paresthesia of skin Disturbance of skin sensation documented in this encounter Care Teams Dictaphone Transcriber Relationship Specialty Start Date End Date Sadia Alonso APRN [address] [place] [address] PCP - General Internal Medicine 12/12/18 documented as of this encounter
--- OUTSIDE RECORDS SUMMARY | 2024-05-10 00:52 | XMS_ITS | Clinical Summary ---
Author Organization [facility] Address [address] [place] [address] Care Team Providers Care Tool Checker Name Role Phone Sadia Alonso SOCCER COMMENTATOR Primary Care Provider [phone] Encounters Date Type Department Care Team Description 04/19/2024 Lab Requisition [facility] Pathology & Laboratory Medicine - [address] [address] Outr Resulting Lab, Provider from Last 3 Months Social History Tobacco Use Types Packs/Day Years Used Date Smoking Tobacco: Never Assessed Sex and Gender Information Value Date Recorded Sex Assigned at Not on file Legal Sex Male 18:44 EST Gender Identity Not on file Sexual Orientation Not on file Plan of Treatment Health Maintenance Due Date Last Done Comments Hepatitis C Screen 1970 Hepatitis B Vaccine (1 of 3 - 19+ 3-dose series) 06/08 COVID-19 Vaccine ( season) 2023 Procedures Procedure Name Priority Date/Time Associated Diagnosis Comments PSA TOTAL, DIAGNOSTIC Routine 04/19/2024 7:42 EST from Last 3 Months Results * (ABNORMAL) PSA, DIAGNOSTIC (04/19/2024 7:42 EST) PSA 3.7(H) <=3.5 ng/mL 04/19/2024 18:57 EST [facility] Blood VENOUS BLOOD / Unknown 04/19/2024 7:42 EST 04/19/2024 16:34 EST Narrative [facility] - 04/19/2024 18:57 EST NOTE: Serum PSA concentration should not be interpreted as absolute evidence for the presence or absence of malignant disease. Assayed on Siemens ADVIA Centaur XPT using chemiluminescent technology.??Values obtained by using different assay methods cannot be used interchangeably. us Provider Outr Resulting Lab CHEMISTRY & BLOOD GA S ORDERABLES Final Result [facility] [address] [place] [address] from Last 3 Months Insurance * Guarantor: Ant Yi Account Type Relation to Patient Date of Phone Billing Address Personal/Family Self 1970 [phone] [employer] (Work) [address] [place] [address] ANTH * Guarantor: Ant Yi Account Type Relation to Patient Date of Phone Billing Address Personal/Family Self 1970 [phone] [employer] (Work) [address] [place] [address] * Guarantor: Ant Yi Account Type Relation to Patient Date of Phone Billing Address Personal/Family Self 1970 [phone] [employer] (Work) [address] [place] [address] * Guarantor: Ant Yi Account Type Relation to Patient Date of Phone Billing Address Personal/Family Self 1970 [phone] [employer] (Work) [address] [place] [address] * Guarantor: Ant Yi Account Type Relation to Patient Date of Phone Billing Address Personal/Family Self 1970 [phone] [employer] (Work) [address] [place] [address] * Guarantor: Ant Yi Account Type Relation to Patient Date of Phone Billing Address Personal/Family Self 1970 [phone] [employer] (Work) [address] [place] [address] * Guarantor: Ant Yi Account Type Relation to Patient Date of Phone Billing Address Personal/Family Self 1970 [phone] [employer] (Work) [address] [place] [address] * Guarantor: Ant Yi Account Type Relation to Patient Date of Phone Billing Address Personal/Family Self 1970 [phone] [employer] (Work) [address] [place] [address] Care Teams Tool Checker Relationship Specialty Start Date End Date Sadia Alonso NP [address] [place] [id number] PCP - General Family Medicine - Primary Care 01/25/22
--- OUTSIDE RECORDS SUMMARY | 2024-05-10 00:52 | XMS_ITS | Encounter Summary ---
Author Organization [facility] [place] [address] Care Team Providers Care Dispatcher Service Name Role Phone Aurelio Hutton MD Primary Care Provider [phone] Reason for Visit * Reason Onset Date Comments Medication Refill 12/11/2014 Encounter Details Date Type Department Care Team (Late st Contact Info) Description 12/11/2014 [place] [address] Elizabet Salamanca APRN [facility] [place] [address] Social History Tobacco Use Types Packs/Day Years [...] on filedocumented in this encounter Care Teams Dispatcher Service Relationship Specialty Start Date End Date Aurelio Hutton MD [address] [place], [place] [id number] PCP - General 02/16/10 08/13/18 documented as of this encounter
--- OUTSIDE RECORDS SUMMARY | 2024-05-10 00:53 | XMS_ITS | Encounter Summary ---
Author Organization [facility] Address [address] [place] [address] Care Team Providers Care Compensation Programs Manager Name Role Phone Unavailable Primary Care Provider Unavailabl e Encounter Details Date Type Department Care Team (Late st Contact Info) Description 03/24/2008 Before PRISM Converted Visit (Maple) [facility] - Maple conversion [address] [place] [address] Luis Armando Veronica MD [address] [place] [address] Social History Tobacco Use Types Packs/Day Years [...] Priority Date/Time Associated Diagnosis Comments SURGICAL PATHOLOGY Routine 03/24/2008 0:00 EST documented in this encounter Results * SURGICAL PATHOLOGY (03/24/2008 0:00 EST) Pathology Report: SURGICAL PATHOLOGY REPORT ? Reports generated via electronic interface contain original data; ? however they are lacking the format of the original report. ? Caution should be taken when reading/interpreti ng unformatted reports. ? Name: ? KODY, MRAK ? Accession #: ? [id number] ? : ? 1970 (Age: 37) ??M ? Collect Date: ? 03/24/2008 ? Location: ? [facility] ? Receive Date: ? 03/25/2008 ? Provider: LUIS ARMANDO VERONICA MD ? Copy to: SHRUTHI MAK MD ? Final Pathologic Diagnosis: ? Colon, 35.0 cm, biopsies: ? - Focal, minimal active colitis. ??See comment. ? Comment: ? Histologic sections show focal acute cryptitis without evidence of ? chronicity. ??No granulomas are identified. ??Overall, the findings are ? nonspecific and could be related to bowel prep effect. ??Clinical and endoscopic correlation is recommended. ? Document reviewed and electronically signed by: ? Cheryl Matson MD ? Report ??Date: 03/26/2008 13:48 ? By the signature above, the attending physician certifies that he/she has ? personally conducted a gross and/or microscopic examination of the described ? specimens and rendered or confirmed the above diagnosis. ? Specimen(s) Received: ? 35 cm mucosal bx ? Clinical History: ? Rectal bleeding ? Gross Description: ? Received in Hollande's fixative labelled Yi and bx 35 cm colon are ?? two biopsies measuring 0.3 x 0.2 x 0.1 cm and 0.3 x 0.3 x 0.1 cm. ??The specimens are submitted intact in one cassette. ??(J. Kassy. Poppy)/mms ? End of Report ? [facility] 03/24/2008 03/25/2008 8:5 5 EST us Luis Armando Veronica MD PATHOLOGY ORDERABLES Final Result [facility] [address] [place] [address] documented in this encounter Visit Diagnoses Not on filedocumented in this encounter
--- OUTSIDE RECORDS SUMMARY | 2024-05-10 00:53 | XMS_ITS | Encounter Summary ---
Author Organization [facility] Address [address] [place] [address] Care Team Providers Care Consumer Science Teacher Name Role Phone Aurelio Hutton MD Primary Care Provider Sadia Mondragon FINISHING MACHINE TENDER Primary Care Provider [phone] Encounter Details Date Type Department Care Team (Late st Contact Info) Description 03/02/2020 Lab Requisition [facility] Pathology & Laboratory Medicine - [address] [id number] Outr Resulting Lab, Provider Social History Tobacco [...] Procedure Name Priority Date/Time Associated Diagnosis Comments DO NOT ORDER STANDALONE - [facility] COVID TEST Today 03/02/2020 10:31 EST COVID-19 TESTING Routine 03/02/2020 10:3 1 EST documented in this encounter Results * DO NOT ORDER STANDALONE - [facility]OAD COVID TEST (03/02/2020 10:31 EST) COVID-19 rt-PCR Result NEGATIVE Negative 03/03/2020 23:19 EST [facility] Comment: 2019-novel Coronavirus (2019-nCoV) not detected by the qRT-PCR assay. Consider testing for other respiratory viruses or re-collecting for 2019-nCoV testing. Note: Optimum timing for peak viral levels during infections caused by 2019-nCoV have not been determined. Collection of multiple specimens from the same patient may be necessary to detect the virus. Limitations Positive results are indicative of active infection with SARS-CoV-2 but do not rule out bacterial infection or co-infection with other viruses. The agent detected may not be the definite cause of disease. In addition, detection of viral RNA may not indicate the presence of infectious virus or that SARS-CoV-2 is the causative agent for clinical symptoms. Negative results do not preclude SARS-CoV-2 infection and should not be used as the sole basis for patient management decisions. Negative results must be combined with clinical observations, patient history, and epidemiological information. False negative results may also occur if amplification inhibitors are present in the specimen or if inadequate numbers of organisms are present in the specimen. Optimum specimen types and timing for peak viral levels during infections caused by SARS-CoV-2 have not been fully determined. Collection of multiple specimens (types and time points) from the same patient may be necessary to detect the virus. The test was validated for use with upper respiratory specimens obtained via nasopharyngeal or oropharyngeal swabs in VTM, UTM, M4, M5, M6, saline, and MTM media. The performance of this test has not been established for other specimens. Specimens collected using other FDA recommended Specimen Collection Materials listed in the FDA COVID-19 Diagnostic Technologies communication (June 20, 2019) are processed with the caveat that they were not all validated for use with this test and the result must be interpreted in this context. Furthermore, a false negative results may occur if a specimen is improperly collected, transported or handled. If the virus mutates in the RT-PCR target region, SARS-CoV-2 may not be detected or may be detected less predictably. Inhibitors or other types of interference may produce a false negative result. An interference study evaluating the effect of common cold medications was not performed. This test is not FDA-cleared but its performance characteristics were established by our CLIA-certified, CAP-accredited, high complexity laboratory in accordance with CLIA regulations, College [employer] (CAP) guidelines (Jun 13, 2019), and FDA guidance (May 25, 2019). This test is only for use under the Food and Drug Administration's Emergency Use Authorization. Swab ENTIRE NASOPHARYNX / Unknown 03/02/2020 10:31 EST 03/02/2020 16:17 EST us Provider Outr Resulting Lab MICROBIOLOGY - GENER AL ORDERABLES Final Result [facility] [place], [place] * COVID-19 TESTING (03/02/2020 10:31 EST) COVID-19 rt-PCR Result NEGATIVE Negative 03/03/2020 23:19 EST [facility] Comment: 2019-novel Coronavirus (2019-nCoV) not detected by the qRT-PCR assay. Consider testing for other respiratory viruses or re-collecting for 2019-nCoV testing. Note: Optimum timing for peak viral levels during infections caused by 2019-nCoV have not been determined. Collection of multiple specimens from the same patient may be necessary to detect the virus. Limitations Positive results are indicative of active infection with SARS-CoV-2 but do not rule out bacterial infection or co-infection with other viruses. The agent detected may not be the definite cause of disease. In addition, detection of viral RNA may not indicate the presence of infectious virus or that SARS-CoV-2 is the causative agent for clinical symptoms. Negative results do not preclude SARS-CoV-2 infection and should not be used as the sole basis for patient management decisions. Negative results must be combined with clinical observations, patient history, and epidemiological information. False negative results may also occur if amplification inhibitors are present in the specimen or if inadequate numbers of organisms are present in the specimen. Optimum specimen types and timing for peak viral levels during infections caused by SARS-CoV-2 have not been fully determined. Collection of multiple specimens (types and time points) from the same patient may be necessary to detect the virus. The test was validated for use with upper respiratory specimens obtained via nasopharyngeal or oropharyngeal swabs in VTM, UTM, M4, M5, M6, saline, and MTM media. The performance of this test has not been established for other specimens. Specimens collected using other FDA recommended Specimen Collection Materials listed in the FDA COVID-19 [employer] communication (June 20, 2019) are processed with the caveat that they were not all validated for use with this test and the result must be interpreted in this context. Furthermore, a false negative results may occur if a specimen is improperly collected, transported or handled. If the virus mutates in the RT-PCR target region, SARS-CoV-2 may not be detected or may be detected less predictably. Inhibitors or other types of interference may produce a false negative result. An interference study evaluating the effect of common cold medications was not performed. This test is not FDA-cleared but its performance characteristics were established by our CLIA-certified, CAP-accredited, high complexity laboratory in accordance with CLIA regulations, College of [employer] (CAP) guidelines (Jun 13, 2019), and FDA guidance (May 25, 2019). This test is only for use under the Food and Drug Administration's Emergency Use Authorization. Performing Lab [facility] 03/03/2020 23:19 EST [facility] Swab 03/02/2020 10:3 1 EST 03/02/2020 16:17 EST us Provider Outr Resulting Lab MICROBIOLOGY - GENER AL ORDERABLES Final Result [facility] [address] [place], [place] [id number] [place] [address] LABORATORY [place], [place] documented in this encounter Visit Diagnoses Not on filedocumented in this encounter Care Teams Consumer Science Teacher Relationship Specialty Start Date End Date Aurelio Hutton MD PCP - General 07/27/12 01/24/22 Sadia Alonso NP [address] [place] [address] PCP - General Family Medicine - Primary Care 01/25/22 documented as of this encounter
--- OUTSIDE RECORDS SUMMARY | 2024-05-10 00:53 | XMS_ITS | Encounter Summary ---
Author Organization [facility] Address [address] [place] [address] Care Team Providers Care Web Site Specialist Name Role Phone Unavailable Primary Care Provider Unavailabl e Encounter Details Date Type Department Care Team (Late st Contact Info) Description 07/25/2012 Results Only [facility] [phone] Emy Gold, DO [address] [place] [address] Social History Tobacco Use Types Packs/Day Years [...] Date/Time Associated Diagnosis Comments SURGICAL PATHOLOGY Routine 07/25/2012 20 :26 EDT documented in this encounter Results * SURGICAL PATHOLOGY (07/25/2012 20:26 EDT) Pathology Report: SURGICAL PATHOLOGY REPORT Reports generated via electronic interface contain original data; however they are lacking the format of the original report. Caution should be taken when reading/interpreti ng unformatted reports. Name: ? KODY MARK ? Accession #: ? [id number] ? : ? 1970 (Age: 42) ??M ? Collect Date: ? 07/25/2012 ? Location: ? [facility] ? Receive Date: ? 07/25/2012 ? Provider: EMY GOLD DO Copy to: SHRUTHI MAK MD ? Final Pathologic Diagnosis: ? Skin of ear, under right, excision: - Follicular cyst, infundibular type. Document reviewed and electronically signed by: ANJELICA YA MD Report ??Date: 07/27/2012 12:42 By the signature above, the attending physician certifies that he/she has personally conducted a gross and/or microscopic examination of the described specimens and rendered or confirmed the above diagnosis. Specimen(s) Received: ? Sebaceous cyst under right ear Clinical History: ? Neoplasm under right ear; clinical diagnosis code: 238.2 Gross Description: ? Received in formalin labelled Yi, Mark and sebaceous under R ear #1 are two portions of reynoso-purple membranous tissue measuring 1.0 x 0.7 x 0.3 cm and 1.4 x 0.6 x 0.4 cm. ??The specimens are bisected and entire specimen is submitted as block (1). ??(Lg Mcwilliams)/[facility] End of Report [facility] 07/25/2012 20:2 6 EDT 07/25/2012 20:26 EDT us Emy Gold DO PATHOLOGY ORDERABLES Final Res ult [facility] [address] [place] [address] documented in this encounter Visit Diagnoses Not on filedocumented in this encounter
--- OUTSIDE RECORDS SUMMARY | 2024-05-10 00:53 | XMS_ITS | Encounter Summary ---
Author Organization [facility] Address [address] [place] [address] Care Team Providers Care Blood Bank Technician Name Role Phone Aurelio Hutton MD Primary Care Provider Sadia Mondragon NP Primary Care Provider [phone] Encounter Details Date Type Department Care Team (Late st Contact Info) Description 01/08/2021 Lab Requisition [facility] Laboratory Medicine - [address] [phone] Outr Resulting Lab, Provider Social History Tobacco [...] Associated Diagnosis Comments PSA TOTAL, DIAGNOSTIC Routine 01/08/2021 7:20 EDT documented in this encounter Results * PSA TOTAL, DIAGNOSTIC (01/08/2021 7:20 EDT) PSA 1.2 0.0 - 2.5 ng/mL 01/08/2021 18:04 EDT [facility] Blood VENOUS BLOOD / Unknown 01/08/2021 7:20 EDT 01/08/2021 16:24 EDT Narrative [facility] - 01/08/2021 18:04 EDT NOTE: Serum PSA concentration should not be interpreted as absolute evidence for the presence or absence of malignant disease. Assayed on Siemens ADVIA Centaur XPT using chemiluminescent technology.??Values obtained by using different assay methods cannot be used interchangeably. us Provider Outr Resulting Lab CHEMISTRY & BLOOD GA S ORDERABLES Final Result [facility] [address] [place] [address] documented in this encounter Visit Diagnoses Not on filedocumented in this encounter Care Teams Blood Bank Technician Relationship Specialty Start Date End Date Aurelio Hutton MD PCP - General 07/27/12 01/24/22 Sadia Alonso NP [address] [place] [id number] PCP - General Family Medicine - Primary Care 01/25/22 documented as of this encounter
[2024-05-10 09:38] LABS: HCT 52.1 % (40.0-50.0); MCHC 34.5 % (32.0-36.0); MCV 84 fL (80-95); MPV 9.9 fL (8.0-11.0); Platelet Count 123 10^3/uL (130-400); RBC 6.21 10^6/uL (4.36-5.78); RDW 13.2 % (11.8-14.1); RDW-SD 40.5 fL; WBC 3.43 10^3/uL (4.4-10.8)
[2024-05-13 10:30] LABS: Erythropoietin 4.1 mIU/mL (2.6 - 18.5)
== END 2024-05-10 00:51 | disposition home or self-care (01) ==
LOC: LBO 00:50
PROVIDERS: PCP Nurse Practitioner; Referring Provider Nurse Practitioner; Visit Provider Nurse Practitioner
DX: R79.89 Other specified abnormal findings of blood chemistry (principal)
CPT/HCPCS: 36415; 82668; 85027

== ENCOUNTER 2024-09-16 12:23 | Outpatient (CLI) | payer OTHER, SELFPAY ==
[2024-09-16 12:58] LABS: Abs Immature Grans 0.04 10^3/uL (0.0-0.06); Absolute Basophil Count 0.03 10^3/uL (0.0-0.2); Absolute Eosinophil Count 0.18 10^3/uL (0.0-0.7); Absolute Lymphocyte Count 2.06 10^3/uL (1.2-3.4); Absolute Neutrophil Count 2.98 10^3/uL (1.2-6.7); Basophils % 0.5 %; Eosinophils % 3.1 %; HCT 47.9 % (40.0-50.0); HGB 16.9 g/dL (13.5-17.5); Immature Grans % 0.7 %; Lymphocytes % 35.6 %; MCHC 35.3 % (32.0-36.0); MCV 88 fL (80-95); MPV 9.6 fL (8.0-11.0); Monocytes % 8.6 %; Neutrophils % 51.5 %; Platelet Count 179 10^3/uL (130-400); RBC 5.45 10^6/uL (4.36-5.78); RDW 12.5 % (11.8-14.1); RDW-SD 39.5 fL; WBC 5.79 10^3/uL (4.4-10.8)
[2024-09-16 13:18] LABS: Ferritin 49 ng/mL (26-388)
[2024-09-17 09:27] LABS: PSA, Screening 4.3 ng/mL (<=3.5)
== END 2024-09-16 12:24 | disposition home or self-care (01) ==
LOC: LBO 12:25
PROVIDERS: PCP Nurse Practitioner; Visit Provider Nurse Practitioner
DX: Z12.5 Encounter for screening for malignant neoplasm of prostate (principal); R71.8 Other abnormality of red blood cells
CPT/HCPCS: 36415; 84153; 82728; 85025